=== PATIENT | female | born 1970 | race American Indian/Alaskan Native ===

== ENCOUNTER 2017-07-18 13:18 | Emergency (ER) | payer MEDICAID ==
[2017-07-18 13:36] VITALS: RESP 16; O2SAT 98
[2017-07-18 15:35] LABS: RBC URINE 1 /hpf (0-3); URINE BACTERIA RARE (<OCC); URINE BILIRUBIN NEGATIVE (NEGATIVE); URINE BLOOD NEGATIVE (NEGATIVE); URINE COLOR Yellow (YELLOW); URINE GLUCOSE (UA) NORMAL (Normal); URINE KETONE NEGATIVE (NEGATIVE); URINE LEUKOCYTE ESTERASE TRACE Leu/uL (Negative); URINE PROTEIN NEGATIVE (NEGATIVE); URINE UROBILINOGEN NORMAL mg/dL (0.2-1.0); WBC URINE 4 /hpf (0-5)
[2017-07-18 16:23] VITALS: BP 113/76; PULSE 69; TEMP 98.9
--- NOTE | 2017-07-18 16:26 | RAD ---
HISTORY: no bm x 4 days COMPARISON: No prior. FINDINGS: BOWEL: Mild retained feces in the ascending colon and transverse colon only. No bowel obstruction. No hepatic or splenic enlargement. No masses. 3-4 mm calcification projects over lower pole left kidney, possible small renal calculus. BONES: Spinal bandar partially included in this examination. Sclerosis of L4 and L5 vertebrae likely degenerative in conjunction with spinal bandar noted above. OTHER FINDINGS: None. IMPRESSION: No evidence of significant retained feces or bowel obstruction.
--- NOTE | 2017-07-18 16:42 | C.PDOC ---
History Of Present Illness 47 year old female with a history of polysubstance abuse presents to the ED with complaints of bowel movement difficulties for the last few days. Patient states she is in a "program for detox" for the last few weeks and was seen at another hospital. She was given milk of magnesia and is taking dulcolax. Patient also complains of white vaginal discharge and is concerned that "it is a yeast infection." She denies nausea, vomiting, vaginal itching, or dysuria. Time Seen by Provider: 07/18/17 14:00 Chief Complaint (Nursing): GI Problem History Per: Patient History/Exam Limitations: no limitations Onset/Duration Of Symptoms: Days (4 days ) Current Symptoms Are (Timing): Still Present Radiation Of Pain To:: None Associated Symptoms: Constipation. denies: Fever, Chills, Diarrhea Recent travel outside of the [place]: No Abnormal Vaginal Bleeding: No Past Medical History Reviewed: Historical Data, Nursing Documentation, Vital Signs Vital Signs: Last Vital Signs Temp 98.9 F 07/18/17 16:23 Pulse 69 07/18/17 16:23 Resp 16 07/18/17 16:23 BP 113/76 07/18/17 16:23 Pulse Ox 98 07/18/17 17:03 - Medical History PMH: Anxiety, Asthma, Back Problems (scoliosis), Hepatitis (Hep C), Seizures ( "years ago"), Sexually Transmitted Disease (syphillis) - [facility] DETOXIFICATION SERVICES FOR SUBSTANCE ABUSE TREATMENT (11/21/16) Family History: States: Unknown Family Hx - Social History Hx Alcohol Use: Yes Hx Substance Use: Yes - Immunization History Hx Tetanus Toxoid Vaccination: No Hx Influenza Vaccination: No Hx Pneumococcal Vaccination: No Review Of Systems Constitutional: Negative for: Fever, Chills Cardiovascular: Negative for: Chest Pain, Palpitations Gastrointestinal: Positive for: Constipation. Negative for: Nausea, Vomiting, Diarrhea Genitourinary: Positive for: Vaginal Discharge (white vaginal discharge ), Other (no vaginal itching ). Negative for: Dysuria, Hematuria Physical Exam - Physical Exam Appears: Non-toxic, No Acute Distress Skin: Warm, Dry Head: Atraumatic Eye(s): bilateral: Normal Inspection, EOMI Oral Mucosa: Moist Neck: Supple Chest: Symmetrical, No Deformity Cardiovascular: Rhythm Regular Respiratory: Normal Breath Sounds, No Rales, No Rhonchi, No Wheezing Gastrointestinal/Abdominal: Soft, Tenderness (lower abdominal tenderness, disappears when patient is distracted ), No Distention, No Guarding, No Rebound Pelvic: Vaginal Discharge (white discharge ), Cervical Motion Tenderness (mild CMT), Other (Chaperoned by Shelley Wray RN ) Neurological/Psych: Oriented x3, Normal Speech, Normal Cognition ED Course And Treatment O2 Sat by Pulse Oximetry: 98 (room air ) Progress Note: Labs were ordered and patient was given Zithromax and Rocephin. Medical Decision Making Medical Decision Making: pt with mild fecal retention seen on xray. cmt on pelvic. will d/c with colace, and tx for sti/cerviciitis. 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 Eat more fruits and vegetables. Follow up with Gastroenterology doctor and with medical clinic. Take colace as prescribed Return to ER for any worse symptoms. . Prescriptions: Docusate [Colace] 100 mg PO BID #60 cap Instructions: Cervicitis (ED), Constipation (ED), High Fiber Diet (ED) Forms: [facility] ([place]), General Discharge Instructions - Clinical Impression Clinical Impression: Constipation, Cervicitis - Scribe Statement The provider has reviewed the documentation as recorded by the Scribnasir Goyal All medical record entries made by the Scribe were at my direction and personally dictated by me. I have reviewed the chart and agree that the record accurately reflects my personal performance of the history, physical exam, medical decision making, and the department course for this patient. I have also personally directed, reviewed, and agree with the discharge instructions and disposition.
[2017-07-18] MEDS ORDERED: cefTRIAXone (Rocephin) 250 mg Inj IM STA (16:46)
== END 2017-07-18 17:15 | disposition home or self-care (01) ==
LOC: C.ER 13:18
DX: K59.00 Constipation, unspecified (principal); N72 Inflammatory disease of cervix uteri
CPT/HCPCS: 74000; 81001; 84703; 87070; 87491; 87591; 96372; 99284; J0696